=== PATIENT | male | born 2000 | race Caucasian/White ===

== ENCOUNTER 2020-06-04 14:12 | Emergency (ER) | payer MEDICAID ==
[~2020-06-04] VITALS: Ht 175.3 cm; Wt 86.0 kg
[2020-06-04] MEDS ORDERED: IBUPROFEN 600MG TABLET PO ONE (16:00)
[2020-06-04 16:16] VITALS: BP 120/86
== END 2020-06-04 17:15 | disposition home or self-care (01) ==
LOC: ER 14:25
DX: M54.89 Other dorsalgia (principal); X50.0XXA Overexertion from strenuous movement or load, initial encounter; Y93.89 Activity, other specified; Y92.89 Other specified places as the place of occurrence of the external cause; Y99.0 Civilian activity done for income or pay
CPT/HCPCS: 99283